=== PATIENT | female | born 1995 | race Two or more races ===

== ENCOUNTER 2021-11-02 00:32 | Day surgery (SDC) | payer BC, SELFPAY ==
[2021-10-20 15:07] VITALS: BMI 20.2
[2021-11-02 07:43] VITALS: BP 127/75; PULSE 107; RESP 18; TEMP 37.7; O2SAT 100; BMI 20.4
--- NOTE | 2021-11-02 07:58 | P.PNAN_ITS ---
Anes - Initial Pre Proc Eval Procedure: Operation Date: 11/02/21 08:30 Proposed Procedures p Colonoscopy - William Desai MD Date/Time: 11/02/21 07:58 Surgeon: William Desai MD Pre Op Diagnosis: rectal bleeding Patient Data Age: 25 Gender: F Height: 1.68 m Weight: 57.3 kg Last Vital Signs Temp 37.7 C H 11/02/21 07:43 Pulse 107 H 11/02/21 07:43 Resp 18 11/02/21 07:43 BP 127/75 11/02/21 07:43 Pulse Ox 100 11/02/21 07:43 Allergies Allergy/AdvReac Type Severity Reaction Status Date / Time No Known Allergies Allergy Verified 11/02/21 07:45 Home Medications Medication Instructions Recorded Confirmed Type No Home Medications 09/07/21 11/02/21 History Patient hx anesthesia problems: none Family hx anesthesia problems: none Results Review: All pre-operative results and documents have been reviewed as part of the pre-operative evaluation. [facility] Family History Family History Father Cardiovascular disease Grandparent Breast cancer Social History Social History Smoking status: Never smoker Alcohol intake: never Substance use: never Substance use type: does not use Living arrangements: with family Gender identity (if verbalized by the patient): Female Spiritual care concerns: No Anes - Eval Final PreProcedure Day of Procedure 11/02/21 07:58 Patient weight: normal Heart: regular rate and rhythm Lungs: clear to auscultation and normal air movement Airway: Mallampati scale class II Neurological: alert and oriented Last oral intake: >/= 8 hours ASA classification: I Emergent: no Anesthetic plan: proceed Anesthesia type and monitoring: general GIVS and standard monitoring Results Review: All pre-operative results and documents have been reviewed as part of the pre-operative evaluation. Informed Consent: The patient's anesthetic plan and its attendant risks and benefits were discussed with the patient/family/POA. Questions were solicited and answers provided to the satisfaction of the patient/family/POA.
[2021-11-02] MEDS: LACTATED RINGERS 1,000 ML 150 ML IV CONT (07:59)
--- NOTE | 2021-11-02 08:37 | PM.HPGS ---
History of Present Illness History of Present Illness Consent: Risks, benefits, and alternatives have been discussed and questions answered. Patient agrees to proceed with procedure. Chief complaint: rectal bleeding Narrative: Jody Morales is a 25 year old female with intermittent rectal bleeding, she had hemorrhoidectomy in 2019 but never had colonoscopy Review of Systems Constitutional: Constitutional: Denies headache(s) and Denies weakness Eyes: Eyes: Denies blurry vision ENT: Reports Normal hearing present, Denies headache(s) and Denies neck pain Cardiovascular: Cardiovascular: Denies chest pain and Denies dyspnea Respiratory: Respiratory: Denies dyspnea Gastrointestinal: Gastrointestinal: Reports no additional gastrointestinal complaints Genitourinary: Genitourinary: Denies dysuria Musculoskeletal: Musculoskeletal: Denies neck pain Integumentary/Breasts: Skin/Breast: Denies dry skin Neurologic: Reports Normal hearing present, Denies headache(s) and Denies weakness Psychiatric: Psychiatric: Denies anxiety Endocrine: Endocrine: Denies change in body appearance Hematologic/Lymphatic: Hematologic/Lymphatic: Denies easy bleeding Allergic/Immunologic: Allergic/Immunologic: Denies urticaria PMFSH Family History Family History Father Cardiovascular disease Grandparent Breast cancer Social History Social History Smoking status: Never smoker Alcohol intake: never Substance use: never Substance use type: does not use Living arrangements: with family Gender identity (if verbalized by the patient): Female Spiritual care concerns: No Meds Home Medications and Allergies Home Medications Medication Instructions Recorded Confirmed Type No Home Medications 09/07/21 11/02/21 History Allergies Allergy/AdvReac Type Severity Reaction Status Date / Time No Known Allergies Allergy Verified 11/02/21 07:45 Vital Signs Vital Signs - 24 hr 11/02/21 07:43 Temperature 99.9 F H Pulse Rate 107 H Respiratory Rate 18 Blood Pressure 127/75 Pulse Oximetry 100 Exam Const: General: comfortable and no acute distress HENMT: General nose exam: Normal nares present Eyes: General: appearance normal, both eyes and all related structures Neck: Neck: no JVD Resp: Auscultation: clear to auscultation bilaterally Cardio: Rate: regular rate Rhythm: regular rhythm GI: Inspection: non-distended GI Palp: Yes Soft to palpation Skin: General skin exam: normal color Neuro: General: gait normal Speech: normal speech Extrem: General: normal to inspection Psych: Mental Status: mental status grossly normal Assessment and Plan Assessment and plan (1) BRBPR (bright red blood per rectum): Code(s): K62.5 - Hemorrhage of anus and rectum Status: Acute Assessment and Plan: colonoscopy
[2021-11-02 08:54] VITALS: BP 90/56; PULSE 71; RESP 15; O2SAT 98
[2021-11-02 09:04] VITALS: BP 99/65; PULSE 66; RESP 14; O2SAT 100
[2021-11-02 09:14] VITALS: BP 108/68; PULSE 69; RESP 20; O2SAT 97
== END 2021-11-02 09:24 | disposition home or self-care (01) ==
PROVIDERS: PCP Family Medicine; Visit Provider Internal Medicine Gastroenterology
PROC: 0DJD8ZZ Inspection of Lower Intestinal Tract, Via Natural or Artificial Opening Endoscopic (ICD-10-PCS; CPT 45378; principal; 2021-11-02 08:30)
DX: K62.5 Hemorrhage of anus and rectum (principal); K63.5 Polyp of colon; K64.8 Other hemorrhoids
CPT/HCPCS: 45385; 88305; J2704; J7120

== ENCOUNTER 2024-11-05 12:46 | Outpatient (CLI) | payer SELFPAY ==
--- NOTE | ~2024-11-05 | US_ITS ---
EXAMINATION: US OB transvaginal DATE: 11/05/2024 13:10 INDICATION: Size greater than dates. TECHNIQUE: Real-time transvaginal pelvic ultrasound was performed. COMPARISON: None. FINDINGS: The uterus measures 10.0 x 5.7 x 6.1 cm. There is an intrauterine gestational sac. A yolk sac is iden tified. The crown rump length measures 1.1 cm, which correlates with an estimated gestational age of 7 weeks and 2 day(s) (+/-) 5 day(s). heart motion is not identified by M-mode Doppler. T he ovaries are not visualized. There is no free fluid in the pelvis. IMPRESSION: 1. demise. Reviewed, dictated and finalized at location A. R OPERATOR IMPRESSION: 1. demise.
== END 2024-11-05 12:47 | disposition home or self-care (01) ==
PROVIDERS: PCP Nurse Practitioner Women's Health; Visit Provider Nurse Practitioner Women's Health
DX: O36.80X0 Pregnancy with inconclusive fetal viability, not applicable or unspecified (principal); Z3A.00 Weeks of gestation of pregnancy not specified
CPT/HCPCS: 76817

== ENCOUNTER 2024-11-16 00:17 | Day surgery (SDC) | payer BC, SELFPAY ==
[2024-11-12 14:51] VITALS: BMI 20.2
--- NOTE | 2024-11-12 14:52 | PC.NURSE ---
Report to the Outpatient Waiting Room, entrance under the green pavilion located off [facility], at time _1000_ on date _[id number]_. Planned Procedure Time: _1200_.? Time changes happen often and if your time is changed the preop area will call you the afternoon before. - You and your visitor will be asked to self-screen and do not enter if you have any COVID symptoms. Please call surgeon if you need to reschedule. - A mask is optional within the hospital at this time. Patients may have clear liquids (water, carbonated beverages, clear teas, apple juice) until 3 hours prior to surgery with a maximum of 20 ounces. - No food from midnight until time of surgery and no smoking. This includes no chewing gum, candy or mints. Take only the following medications with a SIP of water on the morning of surgery: ___Levothyroxine DO NOT STOP ANY OF YOUR OTHER PRESCRIPTION MEDICATIONS PRIOR TO SURGERY EXCEPT THE FOLLOWING Medications to discontinue per physician None Date to take last dose Please no make-up, nail danish, hairspray, perfume, deodorant, or body powder the day of surgery.? No jewelry (including any body piercings) or valuables the day of surgery, leave them at home.? Please take a shower or bath the night before, or the morning of, surgery with an antibacterial soap.? Wear comfortable, loose fitting clothing.? - Jewelry must be removed prior to entering the operating room.? Rings and piercings that are not removed may be cut off. - The hospital will not accept responsibility for valuables.? - Please leave all valuables, including medications, at home the day of surgery. If you are going home after surgery, a licensed [facility] driver must drive you home.? - NO public transportation without another adult if you receive anesthesia. - We recommend that an adult stay with you for 24 hours following discharge. - We also recommend that you do not drive, make important decision, drink alcoholic beverages, or take any drugs that were not prescribed by your health care provider for at least 24 hours after your discharge time. Follow any additional instructions given to you from your surgeon. Telephone instructions given to __Jody__and asked if any additional questions and then verbalized understanding. Patient advised to call surgeon office or pre surgery nurse liaison [phone] if any additional questions.
[2024-11-16 09:51] VITALS: BP 115/81; PULSE 99; RESP 16; TEMP 37.3; O2SAT 100
[2024-11-16] MEDS: ACETAMINOPHEN 500 MG TABLET 1000 MG PO (10:12)
[2024-11-16] MEDS: LACTATED RINGERS 1,000 ML 30 ML IV CONT (10:13)
--- NOTE | 2024-11-16 10:55 | WPDANESEPPF ---
Anes - Initial Pre Proc Eval Procedure: Operation Date: 11/16/24 12:00 Proposed Procedures p Suction Dilation and Curettage - Joelle Mcdermott MD Date/Time: 11/16/24 10:55 Surgeon: Joelle Mcdermott MD Pre Op Diagnosis: Missed AB Patient Data Age: 28 Gender: F Height: 1.68 m Weight: 57.4 kg Last Vital Signs Temp 37.3 C 11/16/24 09:51 Pulse 99 11/16/24 09:51 Resp 16 11/16/24 09:51 BP 115/81 11/16/24 09:51 Pulse Ox 100 11/16/24 09:51 O2 Del Method Room Air 11/16/24 09:51 Allergies Allergy/AdvReac Type Severity Reaction Status Date / Time No Known Allergies Allergy Verified 11/16/24 09:51 Home Medications ?Medication ?Instructions ?Recorded ?Confirmed ?Type levothyroxine 25 mcg tablet 25 mcg PO DAILY 11/12/24 11/16/24 History (Euthyrox) -ight fum-folic ac-om3 See Rx Instructions PO DAILY 11/16/24 11/16/24 History Patient hx anesthesia problems: none Family hx anesthesia problems: none Results Review: All pre-operative results and documents have been reviewed as part of the pre-operative evaluation. [facility] Past Medical History Medical History (Updated 11/16/24 @ 11:02 by Hugh Wolfe DO) Hypothyroidism Colonoscopy planned BMI 20.0-20.9, adult Surgical History Surgical History Hx of hemorrhoidectomy Family History Family History Father Cardiovascular disease Grandparent Breast cancer Mother No problems noted. Sibling No problems noted. 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 Informed Consent: The patient's anesthetic plan and its attendant risks and benefits were discussed with the patient/family/POA. Questions were solicited and answers provided to the satisfaction of the patient/family/POA.
--- NOTE | 2024-11-16 11:33 | P.HP_ITS ---
History of Present Illness History of Present Illness Consent: Risks, benefits, and alternatives have been discussed and questions answered. Patient agrees to proceed with procedure. Chief complaint: Missed AB Narrative: Jody Morales is a 28 year old female with a 7 week demise. Patient has had no bleeding. Options were discussed in the office and she initially planned to take medication but has changed her mind and wishes to proceed with suction D&C. Risks of infection, bleeding, and perforation are reviewed. Patient voices understanding and agrees to proceed. Review of Systems Review of Systems: not repeated day of surgery; patient states no changes in status [facility] Past Medical History Medical History (Updated 11/16/24 @ 11:35 by Joelle Mcdermott MD) Hypothyroidism BMI 20.0-20.9, adult Surgical History Surgical History Hx of hemorrhoidectomy Family History Family History Father Cardiovascular disease Grandparent Breast cancer Mother No problems noted. Sibling No problems noted. 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 Gender identity (if verbalized by the patient): Female Spiritual care concerns: No Meds Home Medications and Allergies Home Medications ?Medication ?Instructions ?Recorded ?Confirmed ?Type levothyroxine 25 mcg tablet 25 mcg PO DAILY 11/12/24 11/16/24 History (Euthyrox) [id number] fum-folic [id number] See Rx Instructions PO DAILY 11/16/24 11/16/24 History Allergies Allergy/AdvReac Type Severity Reaction Status Date / Time No Known Allergies Allergy Verified 11/16/24 09:51 Vital Signs Vital Signs - 24 hr 11/16/24 09:51 Temperature 99.1 F Pulse Rate 99 Respiratory Rate 16 Blood Pressure 115/81 Pulse Oximetry 100 Oxygen Delivery Room Air Exam Const: General: healthy appearing and alert Orientation/consciousness: patient oriented x3 Resp: Effort & Inspection: normal respiratory effort : External Female Exam: normal external appearance Speculum Exam - Vagina: normal appearance of the vagina and normal vaginal discharge Speculum Exam - Cervix: normal appearance of the cervix Bimanual exam- vagina & uterus: uterine size normal and consistency normal Bimanual Exam- Adnexa, other: normal adnexae and No adnexal tenderness Neuro: General: patient oriented x3 Assessment and Plan Assessment and plan (1) Missed : Code(s): O02.1 - Missed Status: Acute Assessment and Plan: Plan to proceed with suction D&C
--- NOTE | 2024-11-16 11:33 | WPDHPUPDATE1 ---
History and Physical Update Update Date/Time: 11/16/24 11:33 History and Physical has been reviewed, including an updated exam of the patient. There are NO changes in the patient's condition. Risks, benefits, and alternatives have been discussed and questions answered. Patient agrees to proceed with procedure.
[2024-11-16] MEDS: LIDOCAINE 1% LOCAL INJ 10 ML VIAL INFILTRATE (12:15)
--- NOTE | 2024-11-16 12:22 | W.PM.PROC2 ---
Procedure Note - Detailed Date of Procedure 11/16/24 Pre-op Diagnosis Missed AB Post-op Diagnosis Same Procedure Performed Suction D&C Surgeon Joelle Mcdermott MD Anesthesia MAC and Local Findings Uterus sounds to 9cm Description of Procedure The patient is taken to the operating room and placed under anesthesia in the dorsal lithotomy position. She was prepped and draped in the usual sterile fashion. Satsuma speculum was placed in the vagina and the cervix was grasped on the anterior lip with a tenaculum. The uterus is sounded to 9cm. The cervix is serially dilated to an 8 Hegar. The 8mm curved suction curette is used to evacuate weight the uterus. Once no further products of conception are noted in the tubing, the sharp curette was used x1 and the uterus curetted until a good uterine cry is noted in all areas. The suction curette was then placed for 1 additional pass with no additional material noted in the tubing. All instruments were then removed and the patient awakened from anesthesia. The patient was taken to recovery in stable condition. Sponge, needle, and instrument counts are correct per the OR staff. Estimated Blood Loss 50 (Total products of conception) Drains No Packing No Pathology Yes (Products of conception) Complications No immediate complications Condition Stable Disposition PACU
[2024-11-16 12:25] VITALS: BP 93/53; PULSE 66; RESP 16; O2SAT 99
[2024-11-16 12:55] VITALS: BP 92/50; PULSE 67
[2024-11-16 13:15] VITALS: BP 106/80; RESP 63
== END 2024-11-16 13:17 | disposition home or self-care (01) ==
PROVIDERS: PCP Family Medicine; Visit Provider Obstetrics & Gynecology Gynecology
PROC: (CPT 59820; principal; 2024-11-16 12:00)
DX: O02.1 Missed abortion (principal); E03.9 Hypothyroidism, unspecified; Z98.890 Other specified postprocedural states; Z80.3 Family history of malignant neoplasm of breast; Z82.49 Family history of ischemic heart disease and other diseases of the circulatory system
CPT/HCPCS: 59820; 36415; 85461; 86850; 86900; 86901; 88305; A9270; J2003; J2250; J2704; J3010; J7120